=== PATIENT | male | born 2000 | race Caucasian/White ===

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

== ENCOUNTER → 2020-06-27 | Outpatient (CLI) | payer BC | END | disposition home or self-care (01) | LOC: LABWHC1 11:56 | PROVIDERS: ATTEND Family Medicine | DX: Z20.828 Contact with and (suspected) exposure to other viral communicable diseases (principal) | CPT/HCPCS: U0003; C9803 ==

== ENCOUNTER → 2022-01-04 | Outpatient (CLI) | payer OTHER ==
[2022-01-04 14:51] LABS: HCT 50.1 % (39.6-50.0); HGB 16.8 g/dL (13.0-17.0); MCH 28.8 pg (27.0-32.0); MCHC 33.5 g/dL (32.0-37.0); MCV 85.8 fL (80.0-97.0); NRBC Per 100 WBC 0 /100 WBCS (0.0-0.0); Platelet Count 291 X 10*3/uL (140-440); RBC 5.84 X 10*6/uL (4.40-5.60); RDW 12.3 % (11.5-14.5); WBC 8.39 X 10*3/uL (4.50-10.00)
[2022-01-04 16:10] LABS: ALT 107 U/L (10-49); AST 48 U/L (14-35); African American GFR (CKD) 124.6 (60.0-200.0); Albumin 4.8 g/dL (3.8-4.9); Albumin/Globulin Ratio 1.64 (1.60-3.17); Alkaline Phosphatase 85 U/L (41-126); Blood Urea Nitrogen 11.1 mg/dL (9.0-27.0); Calcium 9.6 mg/dL (8.7-10.3); Carbon Dioxide 23.4 mmol/L (20.0-27.5); Chloride 103 mmol/L (96-109); Chol/HDL Ratio 7.38 Ratio; Globulin 2.9 g/dL (1.6-3.3); Glucose 97 mg/dL (70-110); LDL Cholesterol,Calculated 147.1 mg/dL (0.0-131.0); Non-African American GFR(CKD) 107.5 (60.0-200.0); Potassium 4.2 mmol/L (3.5-5.5); Sodium 140 mmol/L (135-145); Total Protein 7.8 g/dL (6.2-8.2)
[2022-01-04 17:12] LABS: Appearance,Urine Clear (Clear); Bilirubin,Urine Negative (Negative); Blood,Urine Negative (Negative); Color,Urine Yellow (Yellow); Ketones,Urine Negative (Negative); Leukocyte Esterase,Urine Negative (Negative); Nitrite,Urine Negative (Negative); Protein,Urine Negative (Negative); Urobilinogen,Urine 0.2 (0.2,1.0)
== END | disposition home or self-care (01) ==
LOC: LABWHC1 10:20
PROVIDERS: ATTEND Emergency Medicine
DX: Z00.00 Encounter for general adult medical examination without abnormal findings (principal)
CPT/HCPCS: 36415; 80053; 80061; 81003; 85027

== ENCOUNTER 2022-07-30 04:43 | Emergency (ER) | payer OTHER, BC ==
--- NOTE | 2022-07-30 04:53 | ED ---
Fall HPI - General Stated Complaint: Left Ankle Injury Time Seen by Provider: 07/30/22 04:53 Source: RN notes reviewed, old records reviewed Mode of arrival: ambulatory Limitations: no limitations - History of Present Illness Initial Comments: This is a 21-year-old male with a fall downstairs. 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 Severe pain left ankle worsens with ambulation no other injuries noted. 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 ROS Other: All systems not noted in ROS Statement are negative. General Exam - General Exam Comments Initial Comments: Mild swelling of left ankle for range of motion General appearance: alert, in no apparent distress Head exam: Present: atraumatic, normocephalic, normal inspection Eye exam: Present: normal appearance, PERRL, EOMI. Absent: scleral icterus, conjunctival injection, periorbital swelling ENT exam: Present: normal exam, mucous membranes moist Neck exam: Present: normal inspection. Absent: tenderness, meningismus, lymphadenopathy Respiratory exam: Present: normal lung sounds bilaterally. Absent: respiratory distress, wheezes, rales, rhonchi, stridor Cardiovascular Exam: Present: regular rate, normal rhythm, normal heart sounds. Absent: systolic murmur, diastolic murmur, rubs, gallop, clicks GI/Abdominal exam: Present: soft, normal bowel sounds. Absent: distended, tenderness, guarding, rebound, rigid Extremities exam: Present: normal inspection, full ROM, normal capillary refill. Absent: tenderness, pedal edema, joint swelling, calf tenderness Back exam: Present: normal inspection Neurological exam: Present: alert, oriented X3, CN II-XII intact Psychiatric exam: Present: normal affect, normal mood Skin exam: Present: warm, dry, intact, normal color. Absent: rash Course Vital Signs 07/30/22 07/30/22 04:53 07:36 Temperature 98.1 F Pulse Rate 77 80 Respiratory 16 16 Rate Blood Pressure 126/62 132/86 O2 Sat by Pulse 98 98 Oximetry - Reevaluation(s) Reevaluation #1: 07/30/22 Medical record is reviewed Patient symptoms resolved here in the ER Patient informed results and questions answered Medical Decision Making - Medical Decision Making 21 male DF for evaluation of left ankle swelling after fall. No traumatic injury is noted, positive left ankle sprain. - Radiology Data Radiology results: report reviewed (X-ray left ankle is positive for swelling and sprain, no fracture), image reviewed Disposition Clinical Impression: Fall, Left ankle sprain Disposition: HOME SELF-CARE Condition: Good Instructions (If sedation given, give patient instructions): Ankle Sprain (ED) Is patient prescribed a controlled substance at d/c from ED?: No Referrals: Shamir Hurtado MD [Primary Care Provider] - 1-2 days Time of Disposition: 06:00
[2022-07-30 05:01] VITALS: RESP 16; TEMP 98.1
[2022-07-30] MEDS ORDERED: SODIUM CHLORIDE 0.9% 500 ML 500 ML IV STA (05:02)
[2022-07-30] MEDS ORDERED: KETOROLAC 15 MG/ML 1 ML VIAL IVP STA (05:02)
[2022-07-30] MEDS ORDERED: ACETAMINOPHEN IV (For NPO) 1,000 MG in EMPTY BAG 1 BAG IVPB ONE (05:15)
--- NOTE | 2022-07-30 05:38 | XR ---
EXAMINATION TYPE: XR ankle complete LT DATE OF EXAM: 07/30/2022 COMPARISON: NONE HISTORY: Pain TECHNIQUE: 3 views FINDINGS: Ankle mortise is anatomic. There is no fracture nor dislocation. Joint spaces are normal. IMPRESSION: Normal left ankle.
[2022-07-30 07:37] VITALS: BP 132/86; PULSE 80
== END 2022-07-30 07:36 | disposition home or self-care (01) ==
LOC: EC 04:43
DX: S93.402A Sprain of unspecified ligament of left ankle, initial encounter (principal); W10.9XXA Fall (on) (from) unspecified stairs and steps, initial encounter
CPT/HCPCS: 73610; 99283; 96374; 96375; J0131; J1885

== ENCOUNTER → 2022-08-06 | Outpatient (CLI) | payer OTHER ==
--- NOTE | 2022-08-06 12:37 | XR ---
EXAMINATION TYPE: XR ankle complete LT DATE OF EXAM: 08/06/2022 CLINICAL HISTORY: Sprain injury with pain TECHNIQUE: Frontal, lateral and oblique images of the left ankle are obtained. COMPARISON: Prior left ankle x-ray one week ago. FINDINGS: There is no acute fracture/dislocation evident in the left ankle. The ankle mortise appea rs within normal limits. [id number] diffuse subcutaneous edema is more prominent from prior. IMPRESSION: As above.
== END | disposition home or self-care (01) ==
LOC: RADXRMAIN 12:19
PROVIDERS: ATTEND Emergency Medicine
DX: S93.402D Sprain of unspecified ligament of left ankle, subsequent encounter (principal)

== ENCOUNTER 2022-11-02 13:15 | Emergency (ER) | payer OTHER ==
[2022-11-02 13:25] VITALS: BP 137/87; PULSE 79; RESP 20; TEMP 98
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
== END 2022-11-02 14:23 | disposition home or self-care (01) ==
LOC: EC 13:15
DX: Z04.3 Encounter for examination and observation following other accident (principal)
CPT/HCPCS: 99281

== ENCOUNTER 2025-02-27 19:37 | Emergency (ER) | payer OTHER ==
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
[2025-02-27 21:30] VITALS: BP 159/90; PULSE 92; RESP 17; TEMP 98.1
== END 2025-02-27 21:28 | disposition home or self-care (01) ==
LOC: EC 19:37
DX: Z04.1 Encounter for examination and observation following transport accident (principal); V43.52XA Car driver injured in collision with other type car in traffic accident, initial encounter; Y92.410 Unspecified street and highway as the place of occurrence of the external cause
CPT/HCPCS: 99283